=== PATIENT | female | born 1980 | race African-American/Black ===

== ENCOUNTER 2016-05-11 23:50 | Emergency (ER) | payer MEDICAID ==
[~2016-05-11] VITALS: Ht 157.5 cm; Wt 79.4 kg
[2016-05-12 00:30] VITALS: BP 158/96
--- NOTE | 2016-05-12 01:15 | NUR ---
AMBULATED TO ER BED 4
--- NOTE | 2016-05-12 01:15 | NUR ---
PATIENT PRESENTS TO ED WITH LEFT FLANK PAIN AND NAUSEA . PT DENIES V/D; SKIN IS PINK/WARM/DRY; AAOX4 WITH EVEN AND STEADY GAIT; LUNGS CLEAR BL; HR EVEN AND REGULAR; PT DENIES ANY FEVER, CP, SOB, OR COUGH AT THIS TIME; PATIENT STATES PAIN OF 08/10 AT THIS TIME; VSS; PATIENT POSITIONED FOR COMFORT; HOB ELEVATED; BEDRAILS UP X2; BED DOWN. ER MD MADE AWARE OF PT STATUS.
--- NOTE | 2016-05-12 01:48 | NUR ---
PT TO CT VIA WC IN STABLE CONDITION
--- NOTE | 2016-05-12 01:57 | NUR ---
PT RETURNED FROM CT VIA WC IN STABLE CONDITION
--- NOTE | 2016-05-12 03:17 | NUR ---
PATIENT ELOPED FROM FACILITY. DISCHARGE INSTRUCTIONS NOT GIVEN TO PATIENT. DR. METCALF NOTIFIED.
== END 2016-05-12 03:18 | disposition left against medical advice (07) ==
LOC: MED 23:50
DX: R31.29 Other microscopic hematuria (principal)

== ENCOUNTER 2016-10-01 13:16 | Emergency (ER) | payer MEDICAID ==
[~2016-10-01] VITALS: Ht 157.5 cm; Wt 79.4 kg
[2016-10-01 13:18] VITALS: BP 110/61
[2016-10-01] MEDS ORDERED: ONDANSETRON 4 MG ODT PO ONE (13:45)
[2016-10-01] MEDS ORDERED: ACETAMINOPHEN EXTRA STRENGTH 500 MG TAB PO ONE (13:45)
[2016-10-01] MEDS ORDERED: NACL 0.9% 1,000 ML IV ONE (13:50)
--- NOTE | 2016-10-01 14:31 | NUR ---
PATIENT AMBULATED WITH [employer] OFFICER TO BED 8 AT THIS TIME. Addendum: 10/01/16 at 1811 by BRITTANY PATIENT AMBULATED WITH [employer] OFFICER TO BED 8 AT THIS TIME
[2016-10-01 14:45] LABS: BASOPHILS # (AUTO) 0.1 K/uL (0.00-0.22); BASOPHILS % (AUTO) 0.6 % (0.0-2.0); EOSINOPHILS # (AUTO) 0.1 K/uL (0-0.4); EOSINOPHILS % (AUTO) 1.2 % (0.0-4.0); HEMATOCRIT 38.6 % (36-48); HEMOGLOBIN 12.9 g/dL (12.0-16.0); LYMPHOCYTES # (AUTO) 1.9 K/uL (2.5-16.5); LYMPHOCYTES % (AUTO) 15.5 % (20.5-51.1); MEAN CORPUSCULAR HEMOGLOBIN 29 pg (27-31); MEAN CORPUSCULAR HGB CONC 34 g/dL (33-37); MEAN CORPUSCULAR VOLUME 86 fL (80-94); MONOCYTES # (AUTO) 0.5 K/uL (0.8-1.0); MONOCYTES % (AUTO) 4.3 % (1.7-9.3); NEUTROPHILS # (AUTO) 9.4 K/uL (1.8-7.7); NEUTROPHILS % (AUTO) 78.4 % (42.2-75.2); PLATELET COUNT (AUTO) 239 K/uL (140-450); RED BLOOD CELL COUNT(AUTO) 4.51 MIL/uL (4.20-5.40); RED CELL DISTRIBUTION WIDTH 12.8 % (11.6-13.7)
[2016-10-01 15:00] LABS: APPEARANCE,URINE SL CLOUDY (CLEAR); BLOOD, URINE 2+ (NEGATIVE); COLOR,URINE YELLOW (YELLOW); LEUKOCYTE ESTERASE ,URINE NEGATIVE (NEGATIVE); NITRITE, URINE NEGATIVE (NEGATIVE); PH,URINE 6.5 (5.0-9.0); PROTEIN,URINE TRACE (NEGATIVE); UGLUCOSE NEGATIVE (NEGATIVE); UROBILINOGEN,URINE 0.2 EU/dL (0.2 - 1)
[2016-10-01 15:03] LABS: BILIRUBIN,URINE NEGATIVE (NEGATIVE)
[2016-10-01 15:09] LABS: BACTERIA,URINE 1+ /HPF (None Seen); MUCUS,URINE 4+ /LPF (None Seen); SQUAMOUS EPITHELIAL CELL,UR 20-40 /LPF (0-3 (FEW)); WBC,URINE 0-3 /HPF (0-5)
--- NOTE | 2016-10-01 15:12 | NUR ---
Ultrasound at bedside.
--- NOTE | 2016-10-01 16:40 | NUR ---
Pelvic exam performed by Dr. Garcia with myself at bedside for entire examination. Patient tolerated procedure well. Specimens sent to lab. Patient assisted to position of comfort after examination.
--- NOTE | 2016-10-01 17:16 | NUR ---
Pt placed in overflow chair. [employer] with patient. Pt is calm and relaxed. VSS.
[2016-10-01 18:34] VITALS: BP 107/59
--- NOTE | 2016-10-01 18:35 | NUR ---
Patient discharged with v/s stable. Written and verbal after care instructions given and explained. Patient verbalized understanding. Police with in custody. All questions addressed prior to discharge. Advised to follow up with PMD.
--- NOTE | 2016-10-02 08:40 | NUR ---
PER DR. LAWRENCE'S DIRECTION, [facility] CALLED AND INFORMED THAT PT NEEDS TO BE STARTED ON A MEDICATION FOR INFECTION, NITROFURANTOIN 100MG BID X10 DAYS. PER SHANE, PRESCRIPTION NEEDS TO BE FAXED. PRESCRIPTION FAXED PER [employer].
== END 2016-10-01 18:35 ==
LOC: MED 13:16
DX: O26.892 Other specified pregnancy related conditions, second trimester (principal); R10.31 Right lower quadrant pain; F17.200 Nicotine dependence, unspecified, uncomplicated; Z3A.16 16 weeks gestation of pregnancy
CPT/HCPCS: 36415; 76805; 81001; 81025; 84702; 85025; 86900; 86901; 87070; 87086; 87205; 87210; 96360; 99285; J7030; Q0092; S0119